=== PATIENT | female | born 1980 | race African-American/Black ===

== ENCOUNTER 2019-05-27 14:24 | Emergency (ER) | payer BC ==
[2019-05-27] MEDS ORDERED: Diazepam 5 MG TAB ONE (15:13)
[2019-05-27] MEDS ORDERED: Cyclobenzaprine 10 MG TAB ONE (15:53)
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
== END 2019-05-27 16:50 | disposition home or self-care (01) ==
LOC: ERS 14:24
DX: M54.6 Pain in thoracic spine (principal); M54.2 Cervicalgia; Z79.82 Long term (current) use of aspirin; V89.2XXA Person injured in unspecified motor-vehicle accident, traffic, initial encounter
CPT/HCPCS: 72040; 72072

== ENCOUNTER 2020-09-01 10:00 | Emergency (ER) | payer BC ==
[2020-09-01] MEDS ORDERED: diphenhydrAMINE 50 MG/ML VIAL ONE (12:39)
[2020-09-01] MEDS ORDERED: Ketorolac Tromethamine 30 MG/ML VIAL ONE (12:39)
[2020-09-01] MEDS ORDERED: methylPREDNISolone Sod Succ/PF 125 MG/2 ML VIAL ONE (12:39)
[2020-09-01] MEDS ORDERED: Metoclopramide HCl 10 MG/2 ML VIAL ONE (13:22)
[2020-09-01 13:26] LABS: Bilirubin Negative (Negative); Blood, Urine Negative (Negative); Clarity Clear (Clear); Glucose, Urine (Dipstick) Normal (Negative); Ketone, Urine Negative (Negative); Leukocyte Negative Leu/uL (Negative); Nitrite Negative (Negative); Protein, Urine (Dipstick) Negative (Neg-Trace); Specific Gravity, Urine 1.023 (1.002-1.036); Urobilinogen Normal mg/dL (Less than 2); pH, Urine 5.5 (5.0-9.0)
[2020-09-01 13:29] LABS: Hemoglobin 13.3 g/dL (12.0-16.0); Mean Corpuscular HGB CONC 32.3 g/dL (32.0-36.0); Mean Corpuscular Hemoglobin 29.1 pg (27.0-31.0); Mean Platelet Volume 7.2 fL (7.4-10.4); Platelet Count 356 thou/uL (130-400); RBC Distribution Width 11.7 % (11.5-14.5); Red Blood Cell (RBC) Count 4.58 mill/uL (4.20-5.40)
[2020-09-01 13:48] LABS: Eosinophils 1 % (0-10); Lymphocytes 53 % (21-51); MDiff Complete? YES; Monocytes 9 % (0-10); Neutrophil 37 % (42-75); Platelet Morphology Comment Appears Adequate; RBC Morphology Normal
[2020-09-01 15:00] LABS: Albumin 3.6 g/dL (3.5-5.0)
[2020-09-01 15:02] LABS: Calcium 8.5 mg/dL (7.8-10.44); Chloride 113 mmol/L (98-107); Potassium 3.3 mmol/L (3.5-5.1); Sodium 141 mmol/L (136-145)
[2020-09-01 15:03] LABS: Globulin 3.1 g/dL (2.4-3.5); Glucose 91 mg/dL (70-105); Protein, Total 6.7 g/dL (6.0-8.3)
[2020-09-01 15:04] LABS: Anion Gap 13 mmol/L (10-20); Carbon Dioxide 18 mmol/L (22-29)
[2020-09-01 15:05] LABS: Bilirubin, Total 0.3 mg/dL (0.2-1.2)
[2020-09-01 15:06] LABS: Alkaline Phosphatase 32 U/L (40-110); Calc. Creatinine Clearance 0 mL/min (70-130)
[2020-09-01 15:07] LABS: BUN (Urea Nitrogen) 9 mg/dL (7.0-18.7)
[2020-09-01 15:08] LABS: AST (SGOT) 16 U/L (5-34)
[2020-09-01 15:09] LABS: ALT (SGPT) 18 U/L (8-55)
== END 2020-09-01 15:05 | disposition home or self-care (01) ==
LOC: ERS 10:00
DX: G43.909 Migraine, unspecified, not intractable, without status migrainosus (principal)
CPT/HCPCS: 36415; 70450; 80053; 81003; 85025; 96365; 96375; J1200; J1885; J2765; J2930